=== PATIENT | male | born 1970 ===

== ENCOUNTER 2020-06-03 16:59 | Emergency (ER) | payer MEDICARE ==
[~2020-06-03] VITALS: Ht 182.9 cm; Wt 90.9 kg
[2020-06-03 17:29] VITALS: Ht 182.9 cm; Wt 90.9 kg
[2020-06-03] MEDS ORDERED: LISINOPRIL10 MG (17:37)
[2020-06-03 18:00] LABS: BASOPHILS 0.6 % (0-2); EOSINOPHILS 4.3 % (0-7); HEMATOCRIT 44.5 % (42.0-54.0); HEMOGLOBIN 15.2 g/dL (13.5-17.5); IMMATURE GRANULOCYTES 0.1 % (0-5); LYMPHOCYTES 22.5 % (15-50); MCHC 34.2 g/dL (31.0-37.0); MCV 87.8 fL (80.0-100.0); MEAN PLATELET VOLUME 10.6 fL (7.4-10.4); MONOCYTES 9.9 % (2-11); NEUTROPHILS 62.6 % (40-80); PLATELET COUNT 179 10x3/uL (130-400); RBC 5.07 10x6/uL (4.20-6.10); RDW 12.4 % (11.5-14.5); WBC 6.7 10x3/uL (4.8-10.8)
[2020-06-03 18:45] LABS: ANION GAP 9.9 mmol/L (8-16); CALCIUM 8.3 mg/dL (8.5-10.1); CARBON DIOXIDE 27.5 mmol/L (21.0-32.0); CREATININE - SERUM 1.2 mg/dL (0.6-1.3); POTASSIUM - SERUM 3.4 mmol/L (3.5-5.1)
[2020-06-03 18:57] LABS: ALBUMIN 3.7 g/dL (3.4-5.0); BILIRUBIN - TOTAL 0.74 mg/dL (0.2-1.3); PROTEIN - SERUM 6.9 g/dL (6.4-8.2)
[2020-06-03 19:37] LABS: APTT 29.5 SECONDS (22.8-39.4); INR 0.98 (0.85-1.17)
[2020-06-03 20:04] LABS: CKMB 1.3 U/L (0.0-3.6); CREATINE KINASE 158 UL (21-232); MAGNESIUM - SERUM 2.3 mg/dL (1.8-2.4); TROPONIN-I 0.024 ng/mL (0.000-0.060)
[2020-06-03 21:28] LABS: CKMB 1.3 U/L (0.0-3.6); CREATINE KINASE 141 UL (21-232)
[2020-06-03 21:34] LABS: TROPONIN-I < 0.017 ng/mL (0.000-0.060)
[2020-06-03 22:17] VITALS: BP 166/91
== END 2020-06-03 22:10 | disposition home or self-care (01) ==
LOC: D.ER 16:59
PROVIDERS: Emergency Medicine
DX: R07.89 Other chest pain (principal); I10 Essential (primary) hypertension